=== PATIENT | female | born 1980 | race Caucasian/White ===

== ENCOUNTER 2023-03-02 17:09 | Inpatient (IN) | payer MEDICAID, OTHER ==
[~2023-03-02] VITALS: Ht 160 cm; Wt 68.1 kg
[2023-03-02] MEDS ORDERED: HALOPERIDOL LACTATE 5MG/ML VIAL IM ONE (18:15)
[2023-03-02 20:25] LABS: BASOPHILS % 0.2 % (0.0-2.0); EOSINOPHILS % 0.4 % (0.0-5.0); HEMATOCRIT. 32.9 % (36.0-48.0); HEMOGLOBIN. 10.3 g/dL (12.0-16.0); LYMPHOCYTES % 9.7 % (20.0-50.0); MEAN CORPUSCULAR HEMOGLOBIN 23.5 pg (28.0-32.0); MEAN CORPUSCULAR VOLUME 74.8 fL (81.0-99.0); MEAN PLATELET VOLUME 8.7 fl (7.4-10.4); MONOCYTES % 2.3 % (2.0-8.0); NEUTROPHILS % 87.4 % (40.0-76.0); PLATELET 304 x1000/uL (130-400); RED CELL DISTRIBUTION WIDTH 16.2 % (11.6-14.6)
[2023-03-02 20:32] LABS: CHLORIDE 107 mEq/L (98-107)
[2023-03-02 20:33] LABS: PROTHROMBIN TIME 10.4 sec (9.6-11.0)
[2023-03-02] MEDS ORDERED: SODIUM CHLORIDE 0.9% 1,000 ML IV ONE (21:15)
[2023-03-02] MEDS ORDERED: METOCLOPRAMIDE HCL 10MG/2ML VIAL IV ONE (21:45)
[2023-03-02 22:17] LABS: CLARITY URINE CLEAR (CLEAR); COLOR URINE YELLOW (YELLOW); KETONES URINE 1+ (NEGATIVE); LEUKOCYTE ESTERASE URINE NEGATIVE (NEGATIVE); NITRITE URINE NEGATIVE (NEGATIVE); OCCULT BLOOD URINE 1+ (NEGATIVE); PH URINE 6.5 (4.5-8.0); PROTEIN URINE 2+ (NEGATIVE); SPECIFIC GRAVITY URINE 1.011 (1.005-1.030); UROBILINOGEN URINE 0.2 E.U./dL (0.2-1.0)
[2023-03-02] MEDS ORDERED: LEVETIRACETAM 1000MG PREMIX 100 ML IV ONE (22:45)
[2023-03-02] MEDS ORDERED: LORAZEPAM 2MG/ML CPJ IV ONE (22:45)
[2023-03-03] MEDS ORDERED: DEXTROSE 50% WATER 50ML SYRINGE IV PRN ×4 (01:45→16:30)
[2023-03-03] MEDS ORDERED: INSULIN LISPRO 100 UNITS/ML SUBCUT SCH ×3 (08:20→17:40)
[2023-03-03] MEDS ORDERED: BLOOD SUGAR DIAGNOSTIC STRIP TEST SCH ×3 (08:47→17:10)
[2023-03-03 08:56] VITALS: BP 125/59
[2023-03-03] MEDS ORDERED: DEXT 5%/0.45% NACL 1000ML 1,000 ML IV SCH (09:00)
[2023-03-03] MEDS ORDERED: LEVETIRACETAM 500 MG in SODIUM CHLORIDE 0.9% 100 ML IV SCH (09:00)
[2023-03-03] MEDS ORDERED: ONDANSETRON HCL 4MG/2ML INJ IV PRN (09:00)
[2023-03-03] MEDS ORDERED: GUAIFENESIN 200MG/10ML SUGAR FREE UDC PO PRN (09:00)
[2023-03-03] MEDS ORDERED: DOCUSATE SODIUM 100MG CAPSULE PO PRN (09:00)
[2023-03-03] MEDS ORDERED: ACETAMINOPHEN 325MG TABLET PO PRN (09:00)
[2023-03-03] MEDS ORDERED: TRAMADOL 50MG TABLET PO PRN (09:00)
[2023-03-03] MEDS ORDERED: CLONIDINE 0.1MG TABLET PO PRN (09:00)
[2023-03-03] MEDS ORDERED: ESCI10TA PO (09:13)
[2023-03-03] MEDS ORDERED: DULO60CA45 PO (09:13)
[2023-03-03] MEDS ORDERED: NALOXONE HCL 0.4MG/ML VIAL IV PRN (09:15)
[2023-03-03] MEDS: ENOXAPARIN 40MG/0.4ML SYR SUBCUT SCH (09:26)
[2023-03-03] MEDS: PANTOPRAZOLE SODIUM 40 MG/VIAL IV SCH (09:26)
[2023-03-03] MEDS: LEVETIRACETAM 500MG PREMIX 100 ML IV SCH ×2 (09:41→21:33)
[2023-03-03] MEDS: METOCLOPRAMIDE HCL 10MG/2ML VIAL IV SCH ×3 (11:17→23:30)
[2023-03-03 12:00] VITALS: BP 127/70
[2023-03-03 12:24] LABS: *AMPHETAMINES SCREEN URINE NEGATIVE (NEGATIVE); *BARBITURATES SCREEN URINE NEGATIVE (NEGATIVE); *BENZODIAZEPINES SCREEN URINE NEGATIVE (NEGATIVE); *COCAINE SCREEN URINE NEGATIVE (NEGATIVE); CANNABINOID URINE SCREEN NEGATIVE (NEGATIVE); METHADONE URINE SCREEN NEGATIVE (NEGATIVE); OPIATES URINE SCREEN NEGATIVE (NEGATIVE); PHENCYCLIDINE URINE SCREEN NEGATIVE (NEGATIVE)
[2023-03-03] MEDS ORDERED: SODIUM CHLORIDE 0.9% 1,000 ML IV ONE (13:00)
[2023-03-03 16:00] VITALS: BP 96/46
[2023-03-03] MEDS: LORAZEPAM 2MG/ML CPJ IV PRN (16:17)
[2023-03-03] MEDS: BLOOD SUGAR DIAGNOSTIC STRIP TEST SCH ×2 (16:50→21:33)
[2023-03-03] MEDS: INSULIN LISPRO 100 UNITS/ML SUBCUT SCH ×2 (16:52→21:33)
[2023-03-03 18:00] LABS: T4 FREE 1.1 ng/dL (0.76-1.46)
[2023-03-03 18:01] LABS: CREATINE KINASE 220 IU/L (26-192)
[2023-03-03 18:24] LABS: FOLIC ACID (FOLATE) SERUM >20 ng/mL ng/mL (>5.38); VITAMIN B12 SERUM 750 pg/mL (211-911)
[2023-03-03 20:00] VITALS: BP 106/55
[2023-03-03] MEDS ORDERED: THIAMINE HCL 100 MG in SODIUM CHLORIDE 0.9% 49 ML IV NR (22:45)
[2023-03-04] VITALS: BP 105/50
[2023-03-04 04:00] VITALS: BP 112/64
[2023-03-04] MEDS: LORAZEPAM 2MG/ML CPJ IV PRN (04:56)
[2023-03-04] MEDS: METOCLOPRAMIDE HCL 10MG/2ML VIAL IV SCH (05:58)
[2023-03-04] MEDS: INSULIN LISPRO 100 UNITS/ML SUBCUT SCH (06:35)
[2023-03-04] MEDS: BLOOD SUGAR DIAGNOSTIC STRIP TEST SCH (06:37)
[2023-03-04 07:59] LABS: BASOPHILS % 0.4 % (0.0-2.0); EOSINOPHILS % 0.9 % (0.0-5.0); HEMATOCRIT. 29.3 % (36.0-48.0); HEMOGLOBIN. 9.4 g/dL (12.0-16.0); LYMPHOCYTES % 27.3 % (20.0-50.0); MEAN CORPUSCULAR HEMOGLOBIN 24.2 pg (28.0-32.0); MEAN PLATELET VOLUME 9.1 fl (7.4-10.4); MONOCYTES % 6.1 % (2.0-8.0); NEUTROPHILS % 65.3 % (40.0-76.0); PLATELET 290 x1000/uL (130-400); RED CELL DISTRIBUTION WIDTH 15.9 % (11.6-14.6)
[2023-03-04 08:00] VITALS: BP 106/59
[2023-03-04 08:04] LABS: CHLORIDE 101 mEq/L (98-107)
[2023-03-04 08:12] LABS: HDL CHOLESTEROL 57 mg/dL (40-59); LDL CHOLESTEROL 46 mg/dL (5-100)
[2023-03-04] MEDS: LEVETIRACETAM 500MG PREMIX 100 ML IV SCH (09:00)
[2023-03-04] MEDS ORDERED: DULOXETINE HCL 60MG DR CAPSULE PO SCH (09:00)
[2023-03-04] MEDS ORDERED: CITALOPRAM HYDROBROMIDE 10MG TABLET PO SCH (09:00)
[2023-03-04] MEDS: ENOXAPARIN 40MG/0.4ML SYR SUBCUT SCH (09:28)
[2023-03-04] MEDS: PANTOPRAZOLE SODIUM 40 MG/VIAL IV SCH (09:28)
== END 2023-03-04 10:00 | disposition left against medical advice (07) | DRG 48 ==
LOC: ER 17:09 → 8WST 03-03 01:42 → EDBEDREQ 03-03 01:51
PROVIDERS: ADMIT Hospitalist; ATTEND Hospitalist
DX: E11.43 Type 2 diabetes mellitus with diabetic autonomic (poly)neuropathy (principal); R65.11 Systemic inflammatory response syndrome (SIRS) of non-infectious origin with acute organ dysfunction; N17.9 Acute kidney failure, unspecified; E44.0 Moderate protein-calorie malnutrition; N13.30 Unspecified hydronephrosis; G40.909 Epilepsy, unspecified, not intractable, without status epilepticus; R33.9 Retention of urine, unspecified; K31.84 Gastroparesis; Z53.20 Procedure and treatment not carried out because of patient's decision for unspecified reasons; Z96.41 Presence of insulin pump (external) (internal); Z96.82 Presence of neurostimulator; Z79.4 Long term (current) use of insulin; Z79.899 Other long term (current) drug therapy
CPT/HCPCS: 36415; 74176; 80053; 80061; 80305; 80320; 81003; 82550; 82607; 82728; 82746; 82962; 83036; 83540; 83550; 84439; 84443; 85025; 93970; 99285; C9113; J1630; J1650; J1815; J1953; J2060; J2765; J3411; J7030; G0480